=== PATIENT | male | born 1960 | race African-American/Black ===

== ENCOUNTER 2025-01-14 06:32 | Emergency (ER) | payer OTHER, MEDICAID ==
[~2025-01-14] VITALS: Ht 172.7 cm; Wt 79.0 kg
[2025-01-14 06:37] VITALS: O2SAT 98
[2025-01-14] MEDS: SODIUM CHLORIDE 0.9% 1,000 ML IV ONE (07:20)
[2025-01-14] MEDS: FAMOTIDINE 20MG/2ML VIAL IV ONE (07:26)
[2025-01-14 07:53] LABS: CHLORIDE 100 mEq/L (98-107); POTASSIUM 3.2 mEq/L (3.5-5.1); SODIUM 138 mEq/L (136-145)
[2025-01-14 07:54] LABS: CARBON DIOXIDE 27 mEq/L (21-32)
[2025-01-14 07:59] LABS: CREATININE 1.6 mg/dL (0.6-1.3); GLUCOSE 330 mg/dL (70-105); TROPONIN I HIGH SENSITIVITY 11 ng/L (3.0-53); UREA NITROGEN BLOOD 29 mg/dL (9-23)
[2025-01-14 08:01] LABS: ALANINE AMINOTRANSFERASE 17 IU/L (10-49); ALBUMIN 4.2 g/dL (3.2-4.8); ASPARTATE AMINOTRANSFERASE 18 IU/L (<34); BILIRUBIN DIRECT 0.5 mg/dL (<=3.0); BILIRUBIN TOTAL 1.9 mg/dL (0.1-1.0); PROTEIN TOTAL 7.9 g/dL (6.0-8.3)
[2025-01-14 08:29] LABS: ETHANOL BLOOD < 10 mg/dL (<10)
[2025-01-14 09:21] LABS: BASOPHILS % 0.3 % (0.0-2.0); DIFFERENTIAL COMMENT 0; HEMATOCRIT. 36.9 % (42.0-52.0); HEMOGLOBIN. 12.6 g/dL (14.0-18.0); LYMPHOCYTES % 16.8 % (20.0-50.0); MEAN CORPUSCULAR HEMOGLOBIN 35.3 pg (28.0-32.0); MEAN CORPUSCULAR HGB CONC 34.2 g/dL (31.0-37.0); MEAN CORPUSCULAR VOLUME 103.1 fL (80.0-94.0); MEAN PLATELET VOLUME 9.1 fl (7.4-10.4); MONOCYTES % 9.8 % (2.0-8.0); NEUTROPHILS % 73.1 % (40.0-76.0); PLATELET 107 x1000/uL (130-400); RED BLOOD CELL COUNT 3.58 mill/uL (4.7-6.1); RED CELL DISTRIBUTION WIDTH 12.7 % (11.6-14.6); WHITE BLOOD COUNT 4.5 x1000/uL (4.5-11.0)
[2025-01-14 09:26] LABS: CHLORIDE 106 mEq/L (98-107); POTASSIUM 3.2 mEq/L (3.5-5.1); SODIUM 139 mEq/L (136-145)
[2025-01-14 09:27] LABS: CALCIUM 8.3 mg/dL (8.7-10.4); CARBON DIOXIDE 25 mEq/L (21-32)
[2025-01-14 09:32] LABS: CREATININE 1.3 mg/dL (0.6-1.3); GLUCOSE 276 mg/dL (70-105); UREA NITROGEN BLOOD 27 mg/dL (9-23)
[2025-01-14 09:43] VITALS: TEMP 36.8; O2SAT 97
[2025-01-14] MEDS: SODIUM CHL 0.9% + KCL 20MEQ/L 1,000 ML IV ONE (09:56)
[2025-01-14 10:07] VITALS: BP 127/70; PULSE 93; RESP 18; TEMP 98.24
[2025-01-14] MEDS: CALCIUM GLUCONATE 1GM PREMIX 50 ML IV NR (10:45)
== END 2025-01-14 13:21 | disposition short-term general hospital (02) ==
LOC: ER 06:46 → CANBEDREQ 11:19 → ER 13:21
DX: E86.0 Dehydration (principal); E11.9 Type 2 diabetes mellitus without complications; Z86.73 Personal history of transient ischemic attack (TIA), and cerebral infarction without residual deficits
CPT/HCPCS: 80076; 80048; 82010; 80320; 82962; 83690; 85025; 84484; 36415; 96368; 96361; 96365; 96375; 99285; J0610; J3490; J3480; J7030; G0480